=== PATIENT | male | born 1945 | race Caucasian/White ===

== ENCOUNTER 2018-02-08 08:57 | Emergency (ER) | payer OTHER ==
--- NOTE | 2018-02-08 09:41 | EDPHY ---
HPI/HX/ROS/PE/MDM Narrative: CHIEF COMPLAINT: "My eyes were sealed shut in the morning with this yellow stuff " HPI: The patient is a 72 y/o male complaining of profuse eye drainage onset Monday, 4 days ago. He describes "goopy yellow" discharge from both eyes that is worst in the morning and has forced him to manually open his lids. He has some associated blurred vision when the discharge is present. He also has associated nasal congestion and a sore throat. He took "4 shots of Irma coffee " to treat his symptoms with no improvement. He denies fever, pain, or other complaints. He has no prior history of eye diseases, eye surgeries, or allergies. REVIEW OF SYSTEMS: Aside from elements discussed in the HPI, a comprehensive 10-point review of systems was reviewed and is negative. PMH: Denies SOCIAL HISTORY: Lives in [place]. Retired. PHYSICAL EXAM: General:Patient is alert, in no acute distress. ENT: Bilateral conjunctival erythema with right worse than left. KIMBERLY. Normal anterior chambers. ENT inspection normal. Neck: Normal inspection. Full range of motion. Respiratory:No respiratory distress. Cardiovascular: Normal cap refill. Skin: Normal color. No rash. Warm and dry. Extremities: Normal appearance. Full range of motion. Neuro: Oriented x3. Normal motor function. Normal sensory function. ED Course: This is a 72 y/o male who presents with a 4-day history of conjunctivitis and viral syndrome. He has bilateral conjunctival erythema with an otherwise normal exam in setting of clear URI symptoms. No indication for urgent ophthalmology assessment. He will be discharged on Ocuflox with ophtho referral and standard precautions. General Time Seen by Provider: 02/08/18 09:27 Initial Vital Signs: Initial Vital Signs Temperature (C) 36.4 C 02/08/18 09:06 Heart Rate 61 02/08/18 09:06 Respiratory Rate 16 02/08/18 09:06 Blood Pressure 168/78 H 02/08/18 09:06 O2 Sat (%) 94 02/08/18 09:06 O2 Delivery Mode Room Air Allergies/Adverse Reactions: No Known Allergies Allergy (Unverified 02/08/18 09:05) Home Medications: Medication Instructions Recorded Ofloxacin 0.3% [Ocuflox 0.3%] 1 drops OP Q2H 2 Days opht.btl 02/08/18 Departure - Departure Disposition: Home, Routine, Self-Care Clinical Impression: Bilateral conjunctivitis, Viral syndrome Condition: Good Instructions: Viral Syndrome (ED), Conjunctivitis (ED) Additional Instructions: 1. Use Ocuflox eye drops as directed in both eyes. 2. Use Tylenol or ibuprofen as directed on the packaging as needed for pain for the next few days or if you develop fever. 3. Follow up with parimutuel cashier in 72 hours for reevaluation. 4. Return to the ED for severe pain, vision changes, or other worsening of condition. Referrals: CLAUDIA YU [Other] - As per Instructions Rafa Alba MD [Medical Doctor] - As per Instructions Prescriptions: Ofloxacin 0.3% [Ocuflox 0.3%] 1 drops OP Q2H 2 Days opht.btl Report Scribed for: Eliel Burt Report Scribed by: Ysabel Enrique Date of Report: 02/08/18 Time of Report: 09:28 Physician Review and Approval Statement: Portions of this note were transcribed by an ED scribe. I personally performed the history, physical exam, and medical decision making; and confirm the accuracy of the information in the transcribed note.
[2018-02-08 11:04] VITALS: BP 148/80; PULSE 58; RESP 18; TEMP 97.5; O2SAT 91
== END 2018-02-08 10:25 | disposition home or self-care (01) ==
DX: H10.9 Unspecified conjunctivitis (principal); B34.9 Viral infection, unspecified

== ENCOUNTER 2019-03-11 19:56 | Emergency (ER) | payer OTHER ==
--- NOTE | 2019-03-11 20:46 | EDPHY ---
H & P Stated Complaint: Injured R foot 3wks ago, worsening pain and swelling Source: Patient Exam Limitations: No limitations - Personal History Current Tetanus/Diphtheria Vaccine: Unsure Current Tetanus Diphtheria and Acellular Pertussis (TDAP): Unsure - Medical/Surgical History Hx Asthma: No Hx Chronic Respiratory Disease: No Hx Diabetes: No Hx Cardiac Disease: No Hx Renal Disease: No Hx Cirrhosis: No Hx Alcoholism: No Hx HIV/AIDS: No Hx Splenectomy or Spleen Trauma: No Other PMH: none - Social History Smoking Status: Never smoked Time Seen by Provider: 03/11/19 20:46 HPI/ROS: HPI: This is a 73-year-old male who presents with Chief Complaint: Right little toe pain and redness Location: Right little toe Quality: Pain and redness Duration: 2 days Signs and Symptoms: No bleeding, no radiation, no numbness, no weakness, no tingling, no incontinence, + decreased range of motion, no swelling, + pain, no fever Timing: Acute Severity: Moderate Context: Patient reports that he dropped an object on his foot approximately 3 weeks ago. The time of injury he felt immediate, constant, moderate pain but it slowly resolved. Two days ago he started to developed redness and pain in his right little toe. He reports that it increases with weight-bearing. After further questioning, he admits a diet rich in "meats."No history of diabetes mellitus, gouty arthropathy. Drove himself to the emergency room. Modifying Factors: None Comment: ROS: A comprehensive 10 system review of systems is otherwise negative aside from elements mentioned in the history of present illness. MEDICAL/SURGICAL/SOCIAL HISTORY: Medical history: Generally healthy. Does not take any regular medications. Surgical history: Denies Social history: Never smoked, retired CONSTITUTIONAL: Overweight, pleasant, elderly white male, nontoxic in appearance, awake and alert, no obvious distress HEENT: Atraumatic and normocephalic. NECK: supple, no midline tenderness, flexion 45 degrees, extension 45 degrees, right and left lateral flexion 45 degrees. No meningismus. Cardiovascular: Normal S1/S2, regular rate, regular rhythm, without murmur rub or gallop. PULMONARY/CHEST: Symmetrical and nontender. Clear to auscultation bilaterally. Good air movement. No accessory muscle usage. ABDOMEN: Soft, nondistended, nontender, protuberant. EXTREMITIES: 2/2 pulses, strength 5/5, right foot shows no deformity; right little toe shows bright red, warmth but no discharge and DIP/PIP/MTP flexion/ extension intact with good light touch sensation. no deformities, no clubbing, no cyanosis, no edema. NEUROLOGICAL: no focal neuro deficits. GCS 15. Light touch sensation intact. SKIN: Warm and dry, no erythema. no rash. Good capillary refill. (Rosana Eng) Constitutional: Initial Vital Signs Temperature (C) 36.6 C 03/11/19 20:08 Heart Rate 56 L 03/11/19 20:08 Respiratory Rate 20 03/11/19 20:08 Blood Pressure 164/90 H 03/11/19 20:08 O2 Sat (%) 93 03/11/19 20:08 O2 Delivery Mode Room Air Allergies/Adverse Reactions: No Known Allergies Allergy (Unverified 03/11/19 20:07) Home Medications: Medication Instructions Recorded Colchicine [Colchicine (*)] 0.6 mg PO ONCE #1 tab 03/11/19 Indomethacin 50 mg PO Q8 PRN #15 capsule 03/11/19 oxyCODONE/APAP 5/325 [Percocet 1 - 2 tab PO Q4H PRN #10 tab 03/11/19 5/325 (*)] Medical Decision Making - Diagnostics Imaging Results: Imaging Impressions Foot X-Ray 03/11/19 20:10 Impression: 1. No acute fracture. 2. Suspect gout arthropathy of the first metatarsophalangeal joint. Procedures: Procedure: Splint placement. A walking boot was applied. After application of the splint I returned and re- examined the patient. The splint was adequately immobilizing the joint and distal to the splint the patient's circulation and sensation was intact. (Rosana Eng) ED Course/Re-evaluation: Vital signs reviewed and show elevated blood pressure. Foot x-ray my read shows degenerative changes but no fracture, dislocation. Physical exam is consistent with gouty arthropathy Given ibuprofen 100 mg, prednisone 60 mg and colchicine 1.2 mg Placed in walking boot Advised low purine diet and given prescription for colchicine 0.6 mg tomorrow, Percocet and indomethacin No signs of neurovascular compromise/tenting of skin/compartment syndrome/ extremities and joints examined above and below area of concern and are neurovascularly intact/cellulitis. This patient was seen under the supervision of my secondary supervising physician. I evaluated and cared for this patient independently. (Rosana Eng) Differential Diagnosis: Differential diagnosis includes but is not limited to fracture, contusion, nerve injury, tendon injury, sprain, fasciitis, gouty arthropathy. (Rosana Eng) Other Provider: The patient was evaluated and managed by the Physician [employer] Greeter. My co- signature indicates that I have reviewed this chart and I agree with the findings and plan of care as documented. I am the secondary supervising physician. (Roxi Lees) - Data Points Medications Given: Discontinued Medications Colchicine (Colchicine) 1.2 mg PO EDNOW ONE Stop: 03/11/19 21:18 Last Admin: 03/11/19 21:26 Dose: 1.2 mg Ibuprofen (Motrin) 800 mg PO EDNOW ONE Stop: 03/11/19 21:18 Last Admin: 03/11/19 21:26 Dose: 800 mg Oxycodone/Acetaminophen (Percocet 5/325mg Prepack#4) 1 btl TAKEHOME EDNOW ONE Stop: 03/11/19 21:21 Last Admin: 03/11/19 21:27 Dose: 1 btl Prednisone (Prednisone) 60 mg PO EDNOW ONE Stop: 03/11/19 21:18 Last Admin: 03/11/19 21:27 Dose: 60 mg Departure - Departure Disposition: Home, Routine, Self-Care Clinical Impression: Acute gout involving toe of right foot Condition: Good Instructions: Oxycodone/Acetaminophen (By mouth), Low Purine Diet (ED), Gout ( ED) Additional Instructions: Wear walking boot while out of bed until pain free. Take colchicine tablet tomorrow morning. Take indomethacin 3 times daily for the next 3-5 days. Use Percocet every 6 hours as needed for severe/break through pain. Do not use Tylenol and Percocet concomitantly. Follow low purine diet. Follow-up with primary care provider if no improvement in the next 5-7 days. Referrals: [facility],. [Clinic] - As per Instructions Prescriptions: Colchicine [Colchicine (*)] 0.6 mg PO ONCE #1 tab Indomethacin 50 mg PO Q8 PRN #15 capsule PRN Reason: Pain, Moderate oxyCODONE/APAP 5/325 [Percocet 5/325 (*)] 1 - 2 tab PO Q4H PRN #10 tab PRN Reason: Pain, Severe
[2019-03-11] MEDS ORDERED: IBUPROFEN 800 MG TAB PO ONE (21:17)
[2019-03-11] MEDS ORDERED: predniSONE 20 MG TAB PO ONE (21:17)
[2019-03-11] MEDS ORDERED: COLCHICINE 0.6 MG CAP/TAB PO ONE (21:17)
[2019-03-11] MEDS ORDERED: OXYCODONE/APAP 5/325MG PREPACK#4 BTL TAKEHOME ONE (21:20)
[2019-03-11 21:30] VITALS: BP 145/74
== END 2019-03-11 21:30 | disposition home or self-care (01) ==
DX: M10.071 Idiopathic gout, right ankle and foot (principal)
CPT/HCPCS: 73630; 99284; J7512; L4386